=== PATIENT | male | born 1965 | race Caucasian/White ===

== ENCOUNTER → 2017-05-08 | Outpatient (CLI) | payer SELFPAY ==
--- NOTE | 2017-05-08 16:51 | CT ---
HISTORY: Family history of heart disease. Cardiac calcium scoring Technique: Multiple axial images of the chest were obtained on a [address] from the aortic arch to the base of the heart with retrospective cardiac gating. Noncontrast evaluation of th e heart was performed for calcium scoring with prospective gating. 3D reconstructions and vessel kaylyn lysis were performed on a vital imaging workstation. Dose reduction techniques including Automated E xposure Control (AEC) and adjustment of mA and kV were utilized. Findings: A total calcium score of 85 is observed. The score results in a mild likelihood of coronary events g iven the age and sex matched cohort analysis. Evaluation of the coronary arterial system demonstrates mild coronary artery disease within the left main, right coronary, and left anterior descending arteries. No significant disease was seen within t he left circumflex artery. Extracardiac findings: No pathologically enlarged lymphadenopathy can be observed. The aortic arch is unremarkable in its a ppearance with normal vascular configuration. No significant pericardial effusion can be identified. The visualized portions of the lung parenchyma are unremarkable. No lytic or blastic lesions can b e identified within the visualized bony thorax. The visualized portions of the abdomen demonstrate n ormal perfusion patterns of the spleen and liver. IMPRESSION: Total calcium score of 85 resulting in a mild likelihood of coronary artery events. Reported By:
== END ==
LOC: RAD 10:17
PROVIDERS: ATTEND Family Medicine
DX: Z13.6 Encounter for screening for cardiovascular disorders (principal)